=== PATIENT | female | born 1950 | race Caucasian/White ===

== ENCOUNTER 2016-09-23 09:53 | Day surgery (SDC) | payer MEDICARE, OTHER ==
[~2016-09-23 09:53] MED LIST: CHONDR SU A NA/HYALUR INTRAOC KIT (SURGICARE) ONE; EPINEPHRINE INJ/PF 1 MG/1 ML AMPULE ONE; KETOROLAC TROMETHAMINE 0.45% 4 DROP/0.4 ML DROPERETTE OD PRN; LIDOCAINE 1% INJ-PF (10 MG/ML) 30 ML SDV ONE
[2016-09-23] MEDS: LIDOCAINE 3.5% OPH GEL/PF 1 ML/TUBE OD PRN ×3 (10:16→10:52)
[2016-09-23] MEDS: CYCLOPENTOLATE 0.2%/PHENYLEPHRINE 1% OPH SOLN 2 ML OD PRN ×3 (10:17→10:43)
[2016-09-23] MEDS: TROPICAMIDE 1% OPH SOLN 3 ML OD PRN ×3 (10:17→10:43)
[2016-09-23] MEDS: BESIFLOXACIN HCL 0.6% OPH SUSP 5 ML BOTTLE OD PRN ×4 (10:18→11:14)
[2016-09-23] MEDS ORDERED: MIDAZOLAM 2 MG/2 ML INJ ONE (10:36)
[2016-09-23] MEDS: TOBRAMYCIN SULFATE/DEXAMETH OPH OINTMENT 3.5 GM ONE ×2 (11:14)
== END 2016-09-23 11:53 | disposition home or self-care (01) ==
LOC: SC 09:53
PROVIDERS: ATTEND Ophthalmology
PROC: 08RJ3JZ Replacement of Right Lens with Synthetic Substitute, Percutaneous Approach (ICD-10-PCS; principal; 2016-09-23 10:45)
DX: H25.11 Age-related nuclear cataract, right eye (principal); Z79.899 Other long term (current) drug therapy; Z88.5 Allergy status to narcotic agent; Z88.6 Allergy status to analgesic agent; Z85.038 Personal history of other malignant neoplasm of large intestine; Z90.49 Acquired absence of other specified parts of digestive tract
CPT/HCPCS: 66984; V2630; J2250; J3490 ×3; A9270 ×2; J0171; 142

== ENCOUNTER 2017-09-30 07:40 | Day surgery (SDC) | payer MEDICARE, OTHER ==
[~2017-09-30 07:40] MED LIST changes: -CHONDR SU A NA/HYALUR INTRAOC KIT (SURGICARE) ONE; +EPINEPHRINE INJ 1 MG/10 ML DISP.SYRIN ONE; -EPINEPHRINE INJ/PF 1 MG/1 ML AMPULE ONE; +FLUMAZENIL INJ 0.5 MG/5 ML VIAL ONE; +GLUCAGON,HUMAN RECOMB 1 MG INJ ONE; -KETOROLAC TROMETHAMINE 0.45% 4 DROP/0.4 ML DROPERETTE OD PRN; -LIDOCAINE 1% INJ-PF (10 MG/ML) 30 ML SDV ONE; +NALOXONE HCL INJ/PF 0.4 MG/1 ML SDV ONE; +ONDANSETRON HCL INJ/PF 4 MG/2 ML SDV ONE
[2017-09-30] MEDS: MIDAZOLAM 2 MG/2 ML INJ ONE ×3 (08:13→08:20)
[2017-09-30] MEDS: FENTANYL CITRATE INJ/PF 100 MCG/2 ML AMPUL ONE ×2 (08:15→08:22)
--- NOTE | 2017-09-30 08:57 | Discharge Summary ---
Discharge Summary (SDC) - Discharge Final Diagnosis: History of colon polyps status post surveillance colonoscopy; hyperplastic polyp Date of Surgery: 09/30/17 Discharge Date: 09/30/17 Condition: Good Treatment or Instructions: [place] [id number] POST ENDOSCOPY DISCHARGE INSTRUCTIONS 1. Diet: Start clear liquids that a regular diet as tolerated. 2. Resume all preoperative medications. All oral anticoagulants and aspirins can be resumed 24 hours after procedure. 3. If a polypectomy was performed some bleeding per rectum may occur. This should stop within 3 days. If not, please contact the office. 4. If you had a colonoscopy you may experience some bloating and delayed return of normal bowel function for several days, your regular bowel movement pattern should resume within a week. 5. Please contact [facility] at to make an appointment with Dr. Lazaro for 1 to 3 weeks following procedure. 6. If you have any questions or concerns regarding your care,treatment plan or follow up, please contact our office. 7. Per clinical guidelines we recommend you undergo a repeat colonoscopy in 3 years. Referrals: JIGN CESPEDES FNP [Primary Care Provider] - Discharge Diet: As Tolerated Discharge Activity: Activity As Tolerated Home Care Assistance: None Needed Report the Following to Your Physician Immediately: Shortness of Breath, Increase in Pain, Fever over 101 Degrees
--- NOTE | 2017-09-30 09:01 | Operative Report ---
Operative Report DATE OF SURGERY: 09/30/17 PREOPERATIVE DIAGNOSIS: Personal history of colon polyps status post transverse colon resection POSTOPERATIVE DIAGNOSIS: Same with hyperplastic polyps of the colon OPERATION: 1. Total colonoscopy to cecum with photodocumentation. 2. Colonic biopsies of the cecum, and upper rectum SURGEON: COLIN OLGUIN ANESTHESIA: Moderate Sedation TISSUE REMOVED OR ALTERED: Polyps COMPLICATIONS: None ESTIMATED BLOOD LOSS: Scant INTRAOPERATIVE FINDINGS: See below PROCEDURE: Obtaining informed consent the patient was taken from the preoperative holding area to the main endoscopy suite where monitoring devices were attached to the patient. Plan and surgical timeout were conducted The patient was placed in the left lateral decubitus position with knees to chest. A perianal examination was performed. There was no visible or palpable anorectal pathology. Sphincter tone was felt to be normal. The flexible adult colonoscope was advanced through the anal rectal canal, all the way to the cecum. Visualization of the cecum was achieved and the ileocecal valve, the appendiceal orifice and transillumination of the anterior abdominal wall. In the cecum is a small elevation of the mucosal fold which was biopsied and sent as colonic polyp; this is performed with a cold forceps device. Bleeding minimal ; this was an excellent study on the well-prepped bowel. The colonoscope was withdrawn slowly and methodically checked and the mucosa carefully. Distal to the cecum, the colon was slightly irregular in contour; this is likely the site of the transverse colon anastomosis. There was no evidence of tumor or stricture. There was no evidence of tumor, stricture, bleeding throughout the rest of the colon.. There was no evidence of diverticuloses. In the upper rectum was a small hyperplastic polyp at approximately 18 cm from the anal verge and this is removed with a cold forceps device. The scope was slowly withdrawn through the anal rectal canal. Complete visualization of the rectum was achieved with photodocumentation. The scope was withdrawn to the patient's anus. The patient tolerated the procedure well and was taken to the recovery area in stable condition. Per surveillance guidelines, patient be appropriate candidate for follow-up colonoscopy in 3 years.
[2017-09-30 09:40] VITALS: BP 121/82
== END 2017-09-30 09:45 | disposition home or self-care (01) ==
LOC: END 07:40
PROVIDERS: ATTEND Surgery
DX: Z12.11 Encounter for screening for malignant neoplasm of colon (principal); K63.5 Polyp of colon; K52.9 Noninfective gastroenteritis and colitis, unspecified; K56.609 Unspecified intestinal obstruction, unspecified as to partial versus complete obstruction; Z85.038 Personal history of other malignant neoplasm of large intestine; Z88.6 Allergy status to analgesic agent; Z88.5 Allergy status to narcotic agent; Z79.899 Other long term (current) drug therapy; Z90.49 Acquired absence of other specified parts of digestive tract; E16.2 Hypoglycemia, unspecified
CPT/HCPCS: 45380; 88305 ×2; J2250; J3010; J0171; J1610; J2310; J2405; J3490

== ENCOUNTER 2018-09-13 00:29 | Inpatient (IN) | payer MEDICARE, OTHER ==
[2018-09-13 04:23] LABS: ABSOLUTE LYMPHOCYTES (AUTO) 2.3 10^3/uL (0.5-4.7); ABSOLUTE MONOCYTES (AUTO) 0.8 10^3/uL (0.1-1.4); BASOPHILS % (AUTO) 0.2 % (0-2); EOSINOPHILS % (AUTO) 0.5 % (0-6); HEMATOCRIT 43.3 % (36.0-47.0); HEMOGLOBIN 14.4 g/dL (12.0-15.5); LYMPHOCYTES % (AUTO) 25.5 % (13-45); MEAN CORPUSCULAR HEMOGLOBIN 28.9 pg (27.0-33.4); MEAN CORPUSCULAR HGB CONC 33.3 g/dL (32.0-36.0); MEAN CORPUSCULAR VOLUME 87 fl (80-97); MONOCYTES % (AUTO) 8.7 % (3-13); PLATELET COUNT 299 10^3/uL (150-450); RED BLOOD COUNT 4.99 10^6/uL (3.72-5.28); RED CELL DISTRIBUTION WIDTH 13.8 % (11.5-14.0); SEGMENTED NEUTROPHILS % (AUTO) 65.1 % (42-78); TOTAL CELLS COUNTED % (AUTO) 100 %; WHITE BLOOD COUNT 9.2 10^3/uL (4.0-10.5)
[2018-09-13 04:28] LABS: APPEARANCE,URINE CLOUDY; BILIRUBIN,URINE NEGATIVE (NEGATIVE); COLOR,URINE YELLOW; GLUCOSE, URINE NEGATIVE (NEGATIVE); KETONES,URINE TRACE mg/dL (NEGATIVE); LEUKOCYTE ESTERASE,URINE TRACE (NEGATIVE); NITRITE,URINE NEGATIVE (NEGATIVE); PROTEIN,URINE NEGATIVE (NEGATIVE); URINE SPECIFIC GRAVITY 1.017; UROBILINOGEN,URINE NEGATIVE mg/dL (<2.0)
[2018-09-13 04:42] LABS: ALBUMIN 4.8 g/dL (3.5-5.0); ALKALINE PHOSPHATASE 80 U/L (38-126); ANION GAP 8 (5-19); ASPARTATE AMINO TRANSFERASE 28 U/L (14-36); BILIRUBIN,DIRECT 0.3 mg/dL (0.0-0.4); BILIRUBIN,TOTAL 0.6 mg/dL (0.2-1.3); BLOOD UREA NITROGEN 15 mg/dL (7-20); CALCIUM 9.9 mg/dL (8.4-10.2); CARBON DIOXIDE 34 mmol/L (22-30); CHLORIDE 98 mmol/L (98-107); GLUCOSE 122 mg/dL (75-110); POTASSIUM 4.3 mmol/L (3.6-5.0); TOTAL PROTEIN 7.8 g/dL (6.3-8.2)
[2018-09-13] MEDS ORDERED: ONDANSETRON HCL INJ/PF 4 MG/2 ML SDV IV ONE ×2 (04:57→07:27)
[2018-09-13] MEDS ORDERED: NORMAL SALINE 1000 ML 1,000 ML IV ONE (04:57)
[2018-09-13] MEDS ORDERED: FENTANYL CITRATE INJ/PF 100 MCG/2 ML AMPUL IV ONE (04:57)
--- NOTE | 2018-09-13 04:59 | ER Document Report ---
ED Medical Screen (RME) - General Chief Complaint: Abdominal Pain Stated Complaint: STOMACH PAIN Time Seen by Provider: 09/13/18 04:51 Notes: 68-year-old female chief complaint of generalized abdominal pain which is intermittently sharp with nausea, symptoms started at 6 PM on 09/12/2018. Past medical history includes partial bowel resection for cancer, she has had bowel obstructions in the past as well. She did have a normal looking bowel movement earlier. She denies vomiting. TRAVEL OUTSIDE OF THE [place] IN LAST 30 DAYS: No - Related Data Allergies/Adverse Reactions: ibuprofen [From Motrin] Allergy (Intermediate, Verified 09/28/17 09:59) Hives NSAIDS (Non-Steroidal Anti-Inflamma [Nsaids] Allergy (Intermediate, Verified 09/28/17 09:59) Hives hydrocodone [From Vicodin] Adverse Reaction (Severe, Verified 09/28/17 09:59) GI upset Past Medical History - Social History Frequency of alcohol use: None Drug Abuse: None - Past Medical History Cardiac Medical History: Denies: Hx Coronary Artery Disease, Hx Heart Attack, Hx Hypertension Pulmonary Medical History: Denies: Hx Asthma, Hx Bronchitis, Hx COPD, Hx Pneumonia Neurological Medical History: Denies: Hx Cerebrovascular Accident, Hx Seizures Renal/ Medical History: Reports: Hx Ovarian Cysts, Hx Pelvic Inflammatory Disease. Denies: Hx Peritoneal Dialysis Malignancy Medical History: Reports: Hx Colorectal Cancer GI Medical History: Denies: Hx Hepatitis, Hx Hiatal Hernia, Hx Ulcer Musculoskeltal Medical History: Denies Hx Arthritis Psychiatric Medical History: Reports: Hx Anxiety, Hx Depression - HX OF Infectious Medical History: Denies: Hx Hepatitis, Hx HIV Past Surgical History: Reports: Hx Appendectomy, Hx Bowel Surgery, Hx Gynecologic Surgery - removed ovary, Hx Tubal Ligation. Denies: Hx Section, Hx Cholecystectomy, Hx Gastric Bypass Surgery, Hx Herniorrhaphy, Hx Hysterectomy, Hx Mastectomy, Hx Open Heart Surgery, Hx Pacemaker, Hx Tonsillectomy - Immunizations Hx Diphtheria, Pertussis, Tetanus Vaccination: Yes Physical Exam - Vital signs Vitals: Temp Pulse Resp BP Pulse Ox 97.5 F 84 20 109/72 97 09/13/18 01:01 09/13/18 01:01 09/13/18 01:01 09/13/18 01:01 09/13/18 01:01 - Abdominal Tenderness: Tender - Tender in the generalized abdomen, slightly worse in the middle of the abdomen, nonspecific. No severe tenderness or guarding. No rigidity. Course - Re-evaluation Re-evalutation: I have greeted and performed a rapid initial assessment of this patient. A comprehensive ED assessment and evaluation of the patient, analysis of test results and completion of the medical decision making process will be conducted by additional ED providers. - Vital Signs Vital signs: Temp Pulse Resp BP Pulse Ox 97.5 F 84 20 109/72 97 09/13/18 01:01 09/13/18 01:01 09/13/18 01:01 09/13/18 01:01 09/13/18 01:01 - Laboratory Result Diagrams: 09/13/18 04:06 09/13/18 04:06 Laboratory results interpreted by me: 09/13/18 09/13/18 04:06 04:06 Carbon Dioxide 34 H Glucose 122 H Urine Ketones TRACE H Ur Leukocyte Esterase TRACE H
--- NOTE | 2018-09-13 06:29 | ER Document Report ---
ED General - General Chief Complaint: Abdominal Pain Stated Complaint: STOMACH PAIN Time Seen by Provider: 09/13/18 04:51 TRAVEL OUTSIDE OF THE [place] IN LAST 30 DAYS: No - HPI Notes: Patient is a 68-year-old female who presents to the emergency department for evaluation of abdominal pain. She describes it as a generalized pain, cannot further characterize it for me. Pain started 5 days ago. Is been constant in nature. Nothing seems to make it better or worse. She states it feels similar to the pain she had after her colon resection back in 2011. She does have a history of small bowel obstruction's. She states she had a small bowel movement just prior to arrival in the emergency department last night. She states she is had some nausea but no emesis. She states she is not passing any flatus at this time. She denies any fevers or urinary symptoms. - Related Data Allergies/Adverse Reactions: ibuprofen [From Motrin] Allergy (Intermediate, Verified 09/28/17 09:59) Hives NSAIDS (Non-Steroidal Anti-Inflamma [Nsaids] Allergy (Intermediate, Verified 09/28/17 09:59) Hives hydrocodone [From Vicodin] Adverse Reaction (Severe, Verified 09/28/17 09:59) GI upset Past Medical History - General Information source: Patient - Social History Smoking Status: Never Smoker Frequency of alcohol use: None Drug Abuse: None Family History: Reviewed & Not Pertinent, CVA Patient has suicidal ideation: No Patient has homicidal ideation: No - Past Medical History Cardiac Medical History: Denies: Hx Coronary Artery Disease, Hx Heart Attack, Hx Hypertension Pulmonary Medical History: Denies: Hx Asthma, Hx Bronchitis, Hx COPD, Hx Pneumonia Neurological Medical History: Denies: Hx Cerebrovascular Accident, Hx Seizures Renal/ Medical History: Reports: Hx Ovarian Cysts, Hx Pelvic Inflammatory Disease. Denies: Hx Peritoneal Dialysis Malignancy Medical History: Reports: Hx Colorectal Cancer GI Medical History: Denies: Hx Hepatitis, Hx Hiatal Hernia, Hx Ulcer Musculoskeletal Medical History: Denies Hx Arthritis Psychiatric Medical History: Reports: Hx Anxiety, Hx Depression - HX OF Infectious Medical History: Denies: Hx Hepatitis, Hx HIV Past Surgical History: Reports: Hx Appendectomy, Hx Bowel Surgery, Hx Gynecologic Surgery - removed ovary, Hx Tubal Ligation. Denies: Hx Section, Hx Cholecystectomy, Hx Gastric Bypass Surgery, Hx Herniorrhaphy, Hx Hysterectomy, Hx Mastectomy, Hx Open Heart Surgery, Hx Pacemaker, Hx Tonsillectomy - Immunizations Hx Diphtheria, Pertussis, Tetanus Vaccination: Yes Review of Systems - Review of Systems Constitutional: No symptoms reported EENT: No symptoms reported Cardiovascular: No symptoms reported Respiratory: No symptoms reported Gastrointestinal: See HPI Genitourinary: No symptoms reported Musculoskeletal: No symptoms reported Skin: No symptoms reported Neurological/Psychological: No symptoms reported Physical Exam - Vital signs Vitals: Temp Pulse Resp BP Pulse Ox 97.5 F 84 20 109/72 97 09/13/18 01:01 09/13/18 01:01 09/13/18 01:01 09/13/18 01:01 09/13/18 01:01 - Notes Notes: Vital signs reviewed, please refer to chart. Head is normocephalic, atraumatic. Pupils equal round, reactive to light. Neck is supple without meningismus. Heart is regular rate and rhythm. Lungs are clear to auscultation bilaterally. Abdomen is soft, globally tender with out rebound or guarding, hypoactive bowel sounds throughout. Extremities without cyanosis, clubbing. Posterior calves are nontender. Peripheral pulses are equal. Skin is warm and dry. Patient is awake, alert, neurological exam is nonfocal. Course - Re-evaluation Re-evalutation: 09/13/18 06:29 Patient presents emergency department for evaluation. She had initial assessment as placed through E. Orders placed, medication given. She does have some improvement. She is currently drinking contrast for the CT scan. We will continue to monitor. 09/13/18 10:32 Blood work was largely unremarkable. Patient did have an increase in her pain at one point, was medicated with morphine and Zofran with improvement. CT scan of the abdomen pelvis showed increased stool on the right side of the colon, with equalization of the small bowel contents. There was concern about a partial small bowel obstruction. Dr. Alvarado came down to evaluate the patient. He agrees that admission would be most appropriate at this time. NG tube was ordered. We will admit the patient to Dr. Alvarado for further care. - Vital Signs Vital signs: Temp Pulse Resp BP Pulse Ox 97.7 F 76 20 112/70 98 09/13/18 08:37 09/13/18 08:37 09/13/18 01:01 09/13/18 08:37 09/13/18 08:37 - Laboratory Result Diagrams: 09/13/18 04:06 09/13/18 04:06 Laboratory results interpreted by me: 09/13/18 09/13/18 04:06 04:06 Carbon Dioxide 34 H Glucose 122 H Urine Ketones TRACE H Ur Leukocyte Esterase TRACE H - Diagnostic Test Radiology reviewed: Reports reviewed Radiology results interpreted by me: 09/13/18 10:33 Abdomen/Pelvis CT 09/13/18 00:00 IMPRESSION: Abnormal bowel gas pattern, with moderate stool in the ascending colon, and feces like material in distal small bowel. There is dilatation of stomach and proximal small bowel. Serial KUB plain films are recommended to assess antegrade passage of oral contrast. Gastrografin small bowel follow-through could also be performed. Discharge - Discharge Clinical Impression: Partial small bowel obstruction Condition: Stable Disposition: ADMITTED INPATIENT Admitting Provider: Surgicalist - Dr. Alvarado Unit Admitted: Surgical Floor
[2018-09-13] MEDS ORDERED: MORPHINE SULFATE 10 MG/ML INJ IV ONE (07:27)
--- NOTE | 2018-09-13 08:46 | RADIOLOGY REPORT (SQ) ---
EXAM DESCRIPTION: CT ABD/PELVIS WITH IV ORAL COMPLETED DATE/TIME: 09/13/2018 8:08 am REASON FOR STUDY: abd pain, nausea, hx CA and bowel obstructions COMPARISON: CT abdomen pelvis 09/22/2013 Abdominal films 09/23/2013, 12/11/2014, 12/12/2014 Small bowel follow-through 10/04/2013 TECHNIQUE: CT scan of the abdomen and pelvis performed using helical scanning technique with dynamic intravenous contrast injection. Patient drank oral contrast. Images reviewed with lung, soft tissue , and bone windows. Reconstructed coronal and sagittal MPR images reviewed. Delayed images for evalua tion of the urinary system also acquired. All images stored on PACS. All CT scanners at this facility use dose modulation, iterative reconstruction, and/or weight based d osing when appropriate to reduce radiation dose to as low as reasonably achievable (ALARA). [facility]: Dose Right [facility]: CareDose [facility]: Dose Right [facility]: Teradose 4D [facility]: Prixing CONTRAST TYPE AND DOSE: contrast/concentration: Isovue 350.00 mg/ml; Total Contrast Delivered: 67.0 ml; Total Saline Delivered: 52.0 ml RENAL FUNCTION: Creatinine 0.7 RADIATION DOSE: CT Rad equipment meets quality standard of care and radiation dose reduction techniq ues were employed. CTDIvol: 6.4 - 8.4 mGy. DLP: 770 mGy-cm.. LIMITATIONS: None. FINDINGS: Patient drank oral contrast. Mild distention of stomach and jejunum with oral contrast. Mid and distal small bowel is distended with feces like material without a definite transition point identified. Moderate stool in the ascending colon. Patient is post left hemicolectomy. Colon is de compressed distal to the colon-colon anastomosis. This pattern is abnormal but nonspecific. Follow-up serial KUBs are recommended to assess antegrade progression of the patient's oral contrast. There is no free intraperitoneal air. No ascites. LOWER CHEST: No significant findings. No nodules or infiltrates. LIVER: Normal size. No masses. No dilated ducts. SPLEEN: Normal size. No focal lesions. PANCREAS: No masses. No significant calcifications. No adjacent inflammation or peripancreatic fluid collections. Pancreatic duct not dilated. GALLBLADDER: No identified stones by CT criteria. No inflammatory changes to suggest cholecystitis. ADRENAL GLANDS: No significant masses or asymmetry. RIGHT KIDNEY AND URETER: No solid masses. No significant calcifications. No hydronephrosis or hyd roureter. LEFT KIDNEY AND URETER: No solid masses. No significant calcifications. No hydronephrosis or hydr oureter. AORTA AND VESSELS: No aneurysm. No dissection. Renal arteries, SMA, celiac without stenosis. RETROPERITONEUM: A 10 mm retroperitoneal phlebolith is present, lateral to the left mid 3rd ureter on axial series 5, image 57 BOWEL AND PERITONEAL CAVITY: As above APPENDIX: Not identified. Likely surgically absent PELVIS: No mass. No free fluid. Normal bladder. Normal size female pelvic organs ABDOMINAL WALL: No masses. No hernias. BONES: No significant or acute findings. OTHER: No other significant finding. IMPRESSION: Abnormal bowel gas pattern, with moderate stool in the ascending colon, and feces like m aterial in distal small bowel. There is dilatation of stomach and proximal small bowel. Serial KUB plain films are recommended to assess antegrade passage of oral contrast. Gastrografin sm all bowel follow-through could also be performed. TECHNICAL DOCUMENTATION: JOB ID: [id number] Quality ID # [id number]: Final reports with documentation of one or more dose reduction techniques (e.g., Au tomated exposure control, adjustment of the mA and/or kV according to patient size, use of iterative reconstruction technique) 2010 [employer]- All Rights Reserved Reading location - IP/workstation name: [email or web address]
[2018-09-13] MEDS ORDERED: LORAZEPAM INJ 2 MG/1 ML VIAL IV ONE (10:52)
[2018-09-13] MEDS ORDERED: MORPHINE SULFATE 10 MG/ML INJ IV PRN (10:58)
[2018-09-13] MEDS ORDERED: MINERAL OIL ENEMA 133 ML PR ONE ×3 (11:08→15:00)
--- NOTE | 2018-09-13 12:38 | RADIOLOGY REPORT (SQ) ---
EXAM DESCRIPTION: CHEST SINGLE VIEW COMPLETED DATE/TIME: 09/13/2018 12:16 pm REASON FOR STUDY: POST NG TUBE PLACEMENT COMPARISON: CT abdomen pelvis 09/13/2018 Two-view chest 06/12/2011 EXAM PARAMETERS: NUMBER OF VIEWS: One view. TECHNIQUE: Single frontal radiographic view of the chest acquired. RADIATION DOSE: NA LIMITATIONS: Films for nasogastric tube placement FINDINGS: Nasogastric tube tip and side port in the stomach. Fluid-filled stomach with air-fluid le wally. Persistent left upper quadrant mildly dilated small bowel loops. Lung bases are clear. No cardiomegaly. IMPRESSION: Nasogastric tube tip and side port in the stomach TECHNICAL DOCUMENTATION: JOB ID: [id number] [employer]- All Rights Reserved Reading location - IP/workstation name: [email or web address]
[2018-09-13] MEDS: DEXTROSE 5%-LACTATED RINGERS 1,000 ML IV PRN (12:45)
[2018-09-13] MEDS ORDERED: GLYCERIN 99.5% (ANHYDROUS) 177 ML PR ONE ×2 (14:00→15:00)
--- NOTE | 2018-09-13 18:23 | PDOC H&P ---
History of Present Illness Admission Date/PCP: 09/13/18 10:43 Patient complains of: Nausea, vomiting, abdominal pain History of Present Illness: JOSE LONGO is a 68 year old female with a history of colon cancer, status post transverse colectomy. The patient has had a small bowel obstruction twice before in her past. She reports a 1 day history of generalized abdominal pain, distention, nausea, and vomiting. She denies fevers or chills. She denies weakness, orthostasis, dizziness, sore throat, headache, chest pain, shortness of breath, melena, hematochezia, hematemesis. She reports passing very small amounts of flatus, but has not had a bowel movement in more than a day. The patient reports a soft bowel movement every day is her usual. Her pain is dull and aching. It is situated in her mid abdomen. It does not radiate. She rates it as 5 out of 10. Past Medical History Cardiac Medical History: Denies: Coronary Artery Disease, Myocardial Infarction, Hypertension Pulmonary Medical History: Denies: Asthma, Bronchitis, Chronic Obstructive Pulmonary Disease (COPD), Pneumonia Neurological Medical History: Denies: Seizures Malignancy Medical History: Reports: Colorectal Cancer GI Medical History: Denies: Hepatitis, Hiatal Hernia Musculoskeltal Medical History: Denies: Arthritis Psychiatric Medical History: Reports: Depression - HX OF Hematology: Denies: Anemia, Hemophilia, Sickle Cell Disease Infectious Medical History: Denies: HIV Past Surgical History Past Surgical History: Reports: Appendectomy, Tubal Ligation Denies: Amputation, Section, Cholecystectomy, Gastric Bypass Surgery, Herniorrhaphy, Hysterectomy, Mastectomy, Pacemaker, Tonsillectomy Social History Information Source: Patient Smoking Status: Never Smoker Frequency of Alcohol Use: None Hx Recreational Drug Use: No Drugs: None Hx Prescription Drug Abuse: No - Advance Directive Resuscitation Status: Full Code Family History Family History: Reviewed & Not Pertinent, CVA Parental Family History Reviewed: Yes Children Family History Reviewed: Yes Sibling(s) Family History Reviewed.: Yes Medication/Allergy Home Medications: L.acidoph,Paracasei, B.lactis [Probiotic] 1 each PO DAILY 09/18/16 Loratadine 10 mg PO DAILY 09/18/16 Allergies/Adverse Reactions: ibuprofen [From Motrin] Allergy (Intermediate, Verified 09/13/18 12:24) Hives NSAIDS (Non-Steroidal Anti-Inflamma [Nsaids] Allergy (Intermediate, Verified 09/13/18 12:24) Hives hydrocodone [From Vicodin] Adverse Reaction (Severe, Verified 09/13/18 12:24) GI upset Review of Systems Constitutional: ABSENT: chills, fatigue, fever(s), headache(s) Eyes: ABSENT: visual disturbances Ears: ABSENT: hearing changes Nose, Mouth, and Throat: ABSENT: sore throat Cardiovascular: ABSENT: chest pain, dyspnea on exertion Respiratory: ABSENT: cough Gastrointestinal: PRESENT: abdominal pain, bloating, nausea, vomiting Genitourinary: ABSENT: dysuria Musculoskeletal: ABSENT: back pain Integumentary: ABSENT: pruritus, rash Neurological: ABSENT: confusion, convulsions, dizziness, memory loss, numbness, paresthesias Psychiatric: ABSENT: anxiety, depression Endocrine: ABSENT: cold intolerance, heat intolerance Hematologic/Lymphatic: ABSENT: easy bleeding, easy bruising Physical Exam Vital Signs: Temp Pulse Resp BP Pulse Ox 97.4 F 95 12 146/88 H 97 09/13/18 15:36 09/13/18 15:36 09/13/18 15:36 09/13/18 15:36 09/13/18 15:36 Intake & Output 09/12/18 09/13/18 09/14/18 06:59 06:59 06:59 Intake Total 1000 Balance 1000 Weight 59 kg 59.7 kg General appearance: PRESENT: no acute distress, cooperative Head exam: PRESENT: atraumatic, normocephalic Eye exam: PRESENT: EOMI, PERRLA. ABSENT: scleral icterus Mouth exam: PRESENT: moist Neck exam: ABSENT: meningismus, tenderness, thyromegaly, tracheal deviation Respiratory exam: ABSENT: chest wall tenderness, retraction, rhonchi, tachypnea, unlabored Cardiovascular exam: PRESENT: RRR Pulses: PRESENT: normal radial pulses GI/Abdominal exam: PRESENT: distended - Moderately, soft, other - No signs of peritonitis. ABSENT: guarding, rebound, rigid Extremities exam: ABSENT: clubbing Musculoskeletal exam: ABSENT: deformity Neurological exam: PRESENT: alert, awake, oriented to person, oriented to place, oriented to time, oriented to situation Psychiatric exam: ABSENT: agitated, anxious, depressed Skin exam: ABSENT: cyanosis, erythema Results Laboratory Results: 09/13/18 04:06 09/13/18 04:06 09/13/18 09/13/18 09/13/18 04:06 04:06 04:06 WBC 9.2 RBC 4.99 Hgb 14.4 Hct 43.3 MCV 87 MCH 28.9 MCHC 33.3 RDW 13.8 Plt Count 299 Seg Neutrophils % 65.1 Lymphocytes % 25.5 Monocytes % 8.7 Eosinophils % 0.5 Basophils % 0.2 Absolute Neutrophils 6.0 Absolute Lymphocytes 2.3 Absolute Monocytes 0.8 Absolute Eosinophils 0.0 Absolute Basophils 0.0 Sodium 140.0 Potassium 4.3 Chloride 98 Carbon Dioxide 34 H Anion Gap 8 BUN 15 Creatinine 0.74 Est GFR ( Amer) > 60 Est GFR (Non-Af Amer) > 60 Glucose 122 H Calcium 9.9 Total Bilirubin 0.6 AST 28 Alkaline Phosphatase 80 Total Protein 7.8 Albumin 4.8 Lipase 78.9 Urine Color YELLOW Urine Appearance CLOUDY Urine pH 8.0 Ur Specific [place] 1.017 Urine Protein NEGATIVE Urine Glucose (UA) NEGATIVE Urine Ketones TRACE H Urine Blood NEGATIVE Urine Nitrite NEGATIVE Ur Leukocyte Esterase TRACE H Urine WBC (Auto) 2 Urine RBC (Auto) 4 Impressions: Abdomen/Pelvis CT 09/13/18 00:00 IMPRESSION: Abnormal bowel gas pattern, with moderate stool in the ascending colon, and feces like material in distal small bowel. There is dilatation of stomach and proximal small bowel. Serial KUB plain films are recommended to assess antegrade passage of oral contrast. Gastrografin small bowel follow-through could also be performed. Chest X-Ray 09/13/18 00:00 IMPRESSION: Nasogastric tube tip and side port in the stomach Status: Image reviewed by me Assessment & Plan - Diagnosis (1) Partial small bowel obstruction Is this a current diagnosis for this admission?: Yes - Plan Summary Plan Summary: This is a 68-year-old female with a history of colon cancer, status post resection. She has had small bowel obstructions in the past. She has a CT scan which I have reviewed. The patient has a large amount of stool at her colonic anastomosis. This may be coincidental, but also may represent an area of stricture. The patient's last colonoscopy was September 2017 (approximately 1 year ago). It was performed by Dr. Lazaro. I have reviewed the report. At that time, there was no evidence of stricture or deformity of the anastomosis. There is dilation of small bowel proximal to the right colon. I will attempt an enema today to clear the stool burden from the colonic anastomosis. I will also place an NG tube to decompress the proximal small bowel. Repeat KUB tomorrow. Further interventions will be dictated by the patient's clinical course.
[2018-09-13] MEDS: FAMOTIDINE INJ/PF 20 MG/2 ML SDV IV SCH (21:42)
[2018-09-14 06:00] LABS: ABSOLUTE LYMPHOCYTES (AUTO) 1.4 10^3/uL (0.5-4.7); ABSOLUTE NEUT (AUTO) 11.5 10^3/uL (1.7-8.2); BASOPHILS % (AUTO) 0.1 % (0-2); HEMATOCRIT 42.6 % (36.0-47.0); HEMOGLOBIN 14.3 g/dL (12.0-15.5); LYMPHOCYTES % (AUTO) 10.1 % (13-45); MEAN CORPUSCULAR HEMOGLOBIN 28.8 pg (27.0-33.4); MEAN CORPUSCULAR HGB CONC 33.6 g/dL (32.0-36.0); MEAN CORPUSCULAR VOLUME 86 fl (80-97); MONOCYTES % (AUTO) 6.9 % (3-13); PLATELET COUNT 270 10^3/uL (150-450); RED BLOOD COUNT 4.97 10^6/uL (3.72-5.28); RED CELL DISTRIBUTION WIDTH 13.6 % (11.5-14.0); SEGMENTED NEUTROPHILS % (AUTO) 82.9 % (42-78); TOTAL CELLS COUNTED % (AUTO) 100 %; WHITE BLOOD COUNT 13.9 10^3/uL (4.0-10.5)
[2018-09-14 06:16] LABS: ANION GAP 10 (5-19); BLOOD UREA NITROGEN 11 mg/dL (7-20); CALCIUM 9.1 mg/dL (8.4-10.2); CARBON DIOXIDE 27 mmol/L (22-30); CHLORIDE 103 mmol/L (98-107); GLUCOSE 125 mg/dL (75-110); POTASSIUM 3.9 mmol/L (3.6-5.0)
--- NOTE | 2018-09-14 09:00 | RADIOLOGY REPORT (SQ) ---
EXAM DESCRIPTION: KUB/ABDOMEN (SINGLE VIEW) COMPLETED DATE/TIME: 09/14/2018 8:02 am REASON FOR STUDY: SBO COMPARISON: 12/12/2014 NUMBER OF VIEWS: One view. TECHNIQUE: Supine radiographic image of the abdomen acquired. LIMITATIONS: None. FINDINGS: BOWEL GAS PATTERN: No pathologically dilated loops of bowel to suggest obstruction. Contr ast has traversed to the level of the right colon with dense formed stool within the right hemicolon. CALCIFICATIONS: 1 cm calcific density overlies left lower quadrant, stable. Scattered pelvic phlebol iths. No suspicious calcifications. SOFT TISSUES: No gross mass or suggestion of organomegaly. HARDWARE: Nasoenteric tube tip overlies gastric body. Surgical clips overlie right lower quadrant, s table. BONES: No acute fracture. No worrisome bone lesions. OTHER: No other significant finding. IMPRESSION: 1. Passage of contrast into the colon with dense formed stool within the right colon. 2. No definitive pathologically dilated loops of bowel. TECHNICAL DOCUMENTATION: JOB ID: [id number] [employer]- All Rights Reserved Reading location - IP/workstation name: [email or web address]
[2018-09-14] MEDS: FAMOTIDINE INJ/PF 20 MG/2 ML SDV IV SCH ×2 (09:07→22:06)
[2018-09-14] MEDS: KETOROLAC TROMETHAMINE INJ/PF 30 MG/1 ML SDV IV PRN ×2 (09:07→22:10)
[2018-09-14] MEDS: ONDANSETRON HCL INJ/PF 4 MG/2 ML SDV IV PRN ×3 (09:08→17:03)
[2018-09-14] MEDS: ENOXAPARIN SODIUM INJ 40 MG/0.4 ML DISP.SYRIN SUBCUT SCH (09:08)
[2018-09-14] MEDS ORDERED: PHENOL/SODIUM PHENOLATE 100 SPRAY/177 ML BOTTLE PO PRN (10:00)
[2018-09-14] MEDS: MINERAL OIL 30 ML UDCUP NG SCH ×2 (11:24→17:19)
[2018-09-14] MEDS: DEXTROSE 5%-LACTATED RINGERS 1,000 ML IV PRN ×2 (12:54→20:26)
--- NOTE | 2018-09-14 15:18 | PDOC PROGRESS REPORT ---
Subjective Progress Note for:: 09/14/18 Subjective:: This is a 68-year-old female admitted with abdominal pain, nausea, and vomiting. She had dilated loops of small bowel on CT scan, consistent with a partial small bowel obstruction. She had a large amount of solid stool in the right colon, immediately adjacent to her colonic anastomosis. Today, she reports continued abdominal pain, without nausea. She has had minimal amount of NG output overnight. Currently she denies chest pain, shortness of breath, headache, fevers, chills. She does report malaise. She reports that she had a small bowel movement after her enema last night. Reason For Visit: SMALL BOWEL OBSTRUCTION Physical Exam Vital Signs: Temp Pulse Resp BP Pulse Ox 98.6 F 103 H 16 135/77 H 99 09/14/18 11:44 09/14/18 11:44 09/14/18 11:44 09/14/18 11:44 09/14/18 11:44 Intake & Output 09/13/18 09/14/18 09/15/18 06:59 06:59 06:59 Intake Total 1000 0 180 Output Total 200 Balance 1000 -200 180 Weight 59 kg 58.8 kg General appearance: PRESENT: no acute distress, cooperative Head exam: PRESENT: atraumatic, normocephalic Eye exam: PRESENT: EOMI, PERRLA. ABSENT: scleral icterus Mouth exam: PRESENT: moist, neck supple Neck exam: ABSENT: meningismus, tenderness, thyromegaly, tracheal deviation Cardiovascular exam: PRESENT: RRR Vascular exam: PRESENT: normal capillary refill. ABSENT: pallor GI/Abdominal exam: PRESENT: soft, tenderness - Right sided. ABSENT: distended, firm, guarding Rectal exam: PRESENT: deferred Extremities exam: ABSENT: clubbing Musculoskeletal exam: ABSENT: deformity Neurological exam: PRESENT: alert, awake, oriented to person, oriented to place, oriented to time, oriented to situation, CN II-XII grossly intact Psychiatric exam: ABSENT: agitated, anxious, depressed Skin exam: ABSENT: cyanosis, erythema, jaundice Results Laboratory Results: 09/14/18 05:26 09/14/18 05:26 09/14/18 09/14/18 05:26 05:26 WBC 13.9 H RBC 4.97 Hgb 14.3 Hct 42.6 MCV 86 MCH 28.8 MCHC 33.6 RDW 13.6 Plt Count 270 Seg Neutrophils % 82.9 H Lymphocytes % 10.1 L Monocytes % 6.9 Eosinophils % 0.0 Basophils % 0.1 Absolute Neutrophils 11.5 H Absolute Lymphocytes 1.4 Absolute Monocytes 1.0 Absolute Eosinophils 0.0 Absolute Basophils 0.0 Sodium 139.9 Potassium 3.9 Chloride 103 Carbon Dioxide 27 Anion Gap 10 BUN 11 Creatinine 0.55 Est GFR ( Amer) > 60 Est GFR (Non-Af Amer) > 60 Glucose 125 H Calcium 9.1 Impressions: Abdomen/Pelvis CT 09/13/18 00:00 IMPRESSION: Abnormal bowel gas pattern, with moderate stool in the ascending colon, and feces like material in distal small bowel. There is dilatation of stomach and proximal small bowel. Serial KUB plain films are recommended to assess antegrade passage of oral contrast. Gastrografin small bowel follow-through could also be performed. Chest X-Ray 09/13/18 00:00 IMPRESSION: Nasogastric tube tip and side port in the stomach KUB X-Ray 09/14/18 06:15 IMPRESSION: 1. Passage of contrast into the colon with dense formed stool within the right colon. 2. No definitive pathologically dilated loops of bowel. Assessment & Plan - Diagnosis (1) Partial small bowel obstruction Is this a current diagnosis for this admission?: Yes (2) Constipation Qualifiers: Constipation type: unspecified constipation type Qualified Code(s): K59.00 - Constipation, unspecified Is this a current diagnosis for this admission?: Yes - Plan Summary Plan Summary: This is a 68-year-old female status post transverse colectomy for cancer. She has a recent history of abdominal pain, nausea, and vomiting. On x-ray, she still has a large amount of stool in the right colon. It is immediately adjacent to her colonic anastomosis. This does raise the concern for anastomotic stricture. The patient did have some results with her enema last night. I will order another enema today. I will start mineral oil per NG tube (30 mL's every 6 hours). Hopefully this will stimulate her to move the large amount of right colonic stool through the anastomosis. After her constipation has improved, it may be prudent to study her anastomosis either via colonoscopy or contrast enema. We will continue to use cathartics to relieve her constipation. Further treatments will be determined depending on her clinical course.
[2018-09-15] MEDS: KETOROLAC TROMETHAMINE INJ/PF 30 MG/1 ML SDV IV PRN (06:33)
--- NOTE | 2018-09-15 08:23 | PDOC PROGRESS REPORT ---
Subjective Progress Note for:: 09/15/18 Reason For Visit: SMALL BOWEL OBSTRUCTION Patient states she feels about the same; nasogastric drainage approximately 500 cc overnight. Physical Exam Vital Signs: Temp Pulse Resp BP Pulse Ox 98.7 F 83 16 112/74 98 09/15/18 00:24 09/15/18 00:24 09/15/18 00:24 09/15/18 00:24 09/15/18 00:24 Intake & Output 09/14/18 09/15/18 09/16/18 06:59 06:59 06:59 Intake Total 0 180 Output Total 200 Balance -200 180 Weight 58.8 kg 62.3 kg General appearance: PRESENT: no acute distress GI/Abdominal exam: PRESENT: other - Scaphoid, soft, no peritoneal signs no rigidity. Hypoactive bowel sounds Results Laboratory Results: 09/14/18 05:26 09/14/18 05:26 Impressions: Abdomen/Pelvis CT 09/13/18 00:00 IMPRESSION: Abnormal bowel gas pattern, with moderate stool in the ascending colon, and feces like material in distal small bowel. There is dilatation of stomach and proximal small bowel. Serial KUB plain films are recommended to assess antegrade passage of oral co ntrast. Gastrografin small bowel follow-through could also be performed. Chest X-Ray 09/13/18 00:00 IMPRESSION: Nasogastric tube tip and side port in the stomach Assessment & Plan - Diagnosis (1) Constipation Qualifiers: Constipation type: unspecified constipation type Qualified Code(s): K59.00 - Constipation, unspecified Is this a current diagnosis for this admission?: Yes Plan: Impression: Stable to slight clinical improvement based on physical exam findings and improvement in today's abdominal film. Stool moving through the colon Recommendations: 1. Up and ambulating 2. We will give another enema 3. May consider clamping the nasogastric tube later today
[2018-09-15] MEDS: ONDANSETRON HCL INJ/PF 4 MG/2 ML SDV IV PRN (08:31)
--- NOTE | 2018-09-15 11:13 | RADIOLOGY REPORT (SQ) ---
EXAM DESCRIPTION: KUB/ABDOMEN (SINGLE VIEW) COMPLETED DATE/TIME: 09/15/2018 8:17 am REASON FOR STUDY: constipation, sbo COMPARISON: 09/14/2018 NUMBER OF VIEWS: One view. TECHNIQUE: Supine radiographic image of the abdomen acquired. LIMITATIONS: None. FINDINGS: BOWEL GAS PATTERN: Normal bowel gas pattern. No dilated loops. CALCIFICATIONS: No suspicious calcifications. SOFT TISSUES: No gross mass or suggestion of organomegaly. HARDWARE: An NG tube is just inside the stomach. BONES: No acute fracture. No worrisome bone lesions. OTHER: No other significant finding. IMPRESSION: NO RADIOGRAPHIC EVIDENCE FOR ACUTE ABDOMINAL DISEASE. TECHNICAL DOCUMENTATION: JOB ID: [id number] [employer] All Rights Reserved Reading location - IP/workstation name: [email or web address]
[2018-09-15] MEDS: DEXTROSE 5%-LACTATED RINGERS 1,000 ML IV PRN ×2 (11:19→21:07)
[2018-09-15] MEDS: ENOXAPARIN SODIUM INJ 40 MG/0.4 ML DISP.SYRIN SUBCUT SCH (11:22)
[2018-09-15] MEDS: FAMOTIDINE INJ/PF 20 MG/2 ML SDV IV SCH ×2 (11:22→22:21)
[2018-09-16] MEDS ORDERED: ACETAMINOPHEN 325 MG TABLET PO PRN (03:40)
--- NOTE | 2018-09-16 08:02 | PDOC PROGRESS REPORT ---
Subjective Progress Note for:: 09/16/18 Subjective:: feels sl better, passed bm and someflatus Reason For Visit: SMALL BOWEL OBSTRUCTION Physical Exam Vital Signs: Temp Pulse Resp BP Pulse Ox 99.0 F 84 17 125/78 98 09/15/18 23:57 09/15/18 23:57 09/15/18 23:57 09/15/18 23:57 09/15/18 23:57 Intake & Output 09/15/18 09/16/18 09/17/18 06:59 06:59 06:59 Intake Total 180 Output Total 5000 Balance 180 -5000 Weight 62.3 kg 61.8 kg General appearance: PRESENT: no acute distress Head exam: PRESENT: normocephalic Eye exam: PRESENT: EOMI Ear exam: PRESENT: normal external ear exam Mouth exam: PRESENT: moist Neck exam: PRESENT: full ROM Respiratory exam: PRESENT: clear to auscultation jerel Cardiovascular exam: PRESENT: RRR Pulses: PRESENT: normal radial pulses, normal femoral pulses Vascular exam: PRESENT: normal capillary refill GI/Abdominal exam: PRESENT: soft Rectal exam: PRESENT: deferred Extremities exam: PRESENT: full ROM Musculoskeletal exam: PRESENT: full ROM Neurological exam: PRESENT: alert, awake, oriented to person, oriented to place Skin exam: PRESENT: dry Results Laboratory Results: 09/14/18 05:26 09/14/18 05:26 Impressions: Abdomen/Pelvis CT 09/13/18 00:00 IMPRESSION: Abnormal bowel gas pattern, with moderate stool in the ascending colon, and feces like material in distal small bowel. There is dilatation of stomach and proximal small bowel. Serial KUB plain films are recommended to assess antegrade passage of oral contrast. Gastrografin small bowel follow-through could also be performed. Chest X-Ray 09/13/18 00:00 IMPRESSION: Nasogastric tube tip and side port in the stomach KUB X-Ray 09/15/18 06:00 IMPRESSION: NO RADIOGRAPHIC EVIDENCE FOR ACUTE ABDOMINAL DISEASE. Assessment & Plan - Plan Summary Plan Summary: pt now having bm's ng op 400 yesteeday abd soft will dc ng clears.
[2018-09-16] MEDS: KETOROLAC TROMETHAMINE INJ/PF 30 MG/1 ML SDV IV PRN (08:44)
[2018-09-16] MEDS: ENOXAPARIN SODIUM INJ 40 MG/0.4 ML DISP.SYRIN SUBCUT SCH (11:45)
[2018-09-16] MEDS: FAMOTIDINE INJ/PF 20 MG/2 ML SDV IV SCH ×2 (12:47→22:09)
[2018-09-16] MEDS: DEXTROSE 5%-LACTATED RINGERS 1,000 ML IV PRN (22:10)
[2018-09-17] MEDS: DEXTROSE 5%-LACTATED RINGERS 1,000 ML IV PRN (03:54)
--- NOTE | 2018-09-17 08:49 | RADIOLOGY REPORT (SQ) ---
EXAM DESCRIPTION: KUB/ABDOMEN (SINGLE VIEW) COMPLETED DATE/TIME: 09/17/2018 8:21 am REASON FOR STUDY: sbo COMPARISON: 09/15/2018 NUMBER OF VIEWS: One view. TECHNIQUE: Supine radiographic image of the abdomen acquired. LIMITATIONS: None. FINDINGS: BOWEL GAS PATTERN: Non-obstructive bowel gas pattern. No dilated loops. CALCIFICATIONS: Similar calcifications. SOFT TISSUES: No gross mass or suggestion of organomegaly. HARDWARE: Similar surgical changes in the right mid abdomen. BONES: No acute fracture. No worrisome bone lesions. OTHER: No other significant finding. IMPRESSION: NO RADIOGRAPHIC EVIDENCE FOR ACUTE ABDOMINAL DISEASE. TECHNICAL DOCUMENTATION: JOB ID: [id number] [employer]- All Rights Reserved Reading location - IP/workstation name: [email or web address]
[2018-09-17] MEDS ORDERED: DOCUSATE SODIUM 100 MG CAPSULE PO SCH (10:00)
[2018-09-17] MEDS ORDERED: PSYLLIUM SEED-SF 5.85 GM PACKET PO SCH (10:00)
--- NOTE | 2018-09-17 11:14 | PDOC DISCHARGE SUMMARY ---
General - Admit/Disc Date/PCP Admission Date/Primary Care Provider: 09/15/18 14:57 Discharge Date: 09/17/18 - Discharge Diagnosis (1) Partial small bowel obstruction Is this a current diagnosis for this admission?: Yes (2) Constipation Is this a current diagnosis for this admission?: Yes - Additional Information Resuscitation Status: Full Code Discharge Diet: As Tolerated Discharge Activity: Activity As Tolerated Home Medications: L.acidoph,Paracasei, B.lactis [Probiotic] 1 each PO DAILY 09/18/16 Loratadine 10 mg PO DAILY 09/18/16 History of Present Illness History of Present Illness: JOSE LONGO is a 68 year old female with a history of colon cancer, status post transverse colectomy. The patient has had a small bowel obstruction twice before in her past. She reports a 1 day history of generalized abdominal pain, distention, nausea, and vomiting. She denies fevers or chills. She denies weakness, orthostasis, dizziness, sore throat, headache, chest pain, shortness of breath, melena, hematochezia, hematemesis. She reports passing very small amounts of flatus, but has not had a bowel movement in more than a day. The patient reports a soft bowel movement every day is her usual. Her pain is dull and aching. It is situated in her mid abdomen. It does not radiate. She rates it as 5 out of 10. Hospital Course Hospital Course: The patient was admitted to the hospital and an NG tube was placed. The patient tolerated NG decompression well. She was given multiple enemas in order to clear the stool from the colon. This was eventually successful. The patient began having bowel movements. Her NG tube was removed, and she was begun on a diet. She began tolerating clear liquids well. Her bowels continue to function normally. By 09/17/2018, the patient was ambulating, tolerating a diet, her bowels were moving normally, and it was felt that she had reached maximal hospital benefit. The patient was offered a contrast enema study to evaluate her anastomosis, however at this time she has declined. She had a colonoscopy approximately 1 year ago that was essentially normal. I believe she is fit for discharge. I recommended she take a fiber supplement twice daily as well as stool softeners twice daily. Physical Exam Vital Signs: Temp Pulse Resp BP Pulse Ox 98.1 F 66 16 126/85 H 97 09/17/18 07:41 09/17/18 07:41 09/17/18 07:41 09/17/18 07:41 09/17/18 07:41 Intake & Output 09/16/18 09/17/18 09/18/18 06:59 06:59 06:59 Intake Total 2052 Output Total 5000 1000 Balance -5000 1052 Weight 61.8 kg 63.4 kg Results Laboratory Results: 09/14/18 05:26 09/14/18 05:26 Impressions: Abdomen/Pelvis CT 09/13/18 00:00 IMPRESSION: Abnormal bowel gas pattern, with moderate stool in the ascending colon, and feces like material in distal small bowel. There is dilatation of stomach and proximal small bowel. Serial KUB plain films are recommended to assess antegrade passage of oral contrast. Gastrografin small bowel follow-through could also be performed. Chest X-Ray 09/13/18 00:00 IMPRESSION: Nasogastric tube tip and side port in the stomach KUB X-Ray 09/17/18 00:00 IMPRESSION: NO RADIOGRAPHIC EVIDENCE FOR ACUTE ABDOMINAL DISEASE. Qualifiers - * PATIENT BEING DISCHARGED WITH ANY OF THE FOLLOWING DIAGNOSIS: No Acute Heart Failure - Is this a Heart Failure Patient?: No Plan Discharge Plan: Discharge home. Diet as tolerated. Activity: As tolerated. Follow-up with [facility] as needed. Colace 2 tabs p.o. twice daily. Metamucil fiber supplement 2 tablespoons p.o. twice daily. Time Spent: Less than 30 Minutes
[2018-09-17] MEDS: FAMOTIDINE INJ/PF 20 MG/2 ML SDV IV SCH (11:22)
[2018-09-17] MEDS: ENOXAPARIN SODIUM INJ 40 MG/0.4 ML DISP.SYRIN SUBCUT SCH (11:23)
[2018-09-17 12:48] VITALS: BP 127/74
== END 2018-09-17 15:31 | disposition home or self-care (01) | DRG 390 ==
LOC: ER 00:29 → EH 10:43 → INTOOBSV 10:43 → 5 13:48 → OBSVTOIN 09-15 14:57
PROVIDERS: ADMIT Surgery; ATTEND Surgery
DX: K56.600 Partial intestinal obstruction, unspecified as to cause (principal); Z85.038 Personal history of other malignant neoplasm of large intestine; Z90.49 Acquired absence of other specified parts of digestive tract
CPT/HCPCS: 36415; 71045; 74018; 74177; 80048; 81001; 83690; 85025; 87070; 96361; 96374; 96375; 96376; 99285; G0378; J1650; J1885; J2060; J2270; J2405; J3010; J3490; J7030; J7121; S0028